=== PATIENT | female | born 1965 | race Asian ===

== ENCOUNTER 2019-06-30 17:54 | Outpatient (CLI) | payer SELFPAY | END 2019-06-30 17:55 | disposition home or self-care (01) | LOC: COV 17:54 | PROVIDERS: ATTEND Family Medicine | DX: R50.9 Fever, unspecified (principal); R05 Cough; M79.10 Myalgia, unspecified site; R53.83 Other fatigue; J02.9 Acute pharyngitis, unspecified; R43.8 Other disturbances of smell and taste; Z20.828 Contact with and (suspected) exposure to other viral communicable diseases | CPT/HCPCS: 81599 ==

== ENCOUNTER 2020-05-18 23:35 | Emergency (ER) | payer OTHER ==
--- NOTE | 2020-05-19 00:03 | ED Physician Documentation ---
PD HPI SYNCOPE - Stated complaint Stated Complaint: LOSS OF CONSCIENCE, NAUSEA, VOMITTING, DIZZYNESS - Chief complaint Chief Complaint: Cardiac - History obtained from History obtained from: Patient - History of Present Illness Witnessed: Witnessed Timing - onset: Enter time (22:00), Today Duration: Seconds Preceding symptoms: Nausea / vomiting, Light headed Associated symptoms: Nausea / vomiting Contributing factors: None Injury occurred: None Pain level max: 0 Pain level now: 0 Similar symptoms before: Has not had sx before Recently seen: Not recently seen - Additional information Additional information: patient was at work tonight, and at approximately 10 PM, while seated in front of a computer, she suddenly felt unwell. Patient cannot specify what she means when she says she felt unwell, but she says she then developed nausea and dizziness. She subsequently threw up, and, before getting out of her chair, she had a brief loss of consciousness, she estimates a few seconds. she subsequently had rapid return to normal level of consciousness and interaction, but continue to feel lightheaded and nauseous. She denies history of similar symptoms. Review of Systems Constitutional: reports: Reviewed and negative Eyes: reports: Reviewed and negative Cardiac: reports: Reviewed and negative Respiratory: reports: Reviewed and negative GI: reports: Nausea, Vomiting. denies: Abdominal Pain, Constipation, Diarrhea : denies: Dysuria, Frequency, Incontinent Neurologic: reports: Syncope. denies: Focal weakness, Numbness, Altered mental status, Headache PD PAST MEDICAL HISTORY - Past Medical History Past Medical History: No - Past Surgical History Past Surgical History: Yes General: Cholecystectomy - Present Medications Home Medications: Ambulatory Orders Medication Instructions Recorded Confirmed Melatonin/Pyridoxine [Melatonin 5 1 tab PO QPM 05/19/20 05/19/20 mg Tablet] Multivitamin 1 tab PO DAILY 05/19/20 05/19/20 metFORMIN [Glucophage] 500 mg PO BIDWM #20 tablet 05/19/20 - Allergies Allergies/Adverse Reactions: Allergies Allergy/AdvReac Type Severity Reaction Status Date / Time narcotics Allergy Hives Uncoded 05/19/20 00:22 PD ED PE NORMAL - Vitals Vital signs reviewed: Yes - General General: Alert and oriented X 3, No acute distress, Well developed/nourished - HEENT HEENT: PERRL, EOMI, Moist mucous membranes - Neck Neck: Supple, no meningeal sign - Cardiac Cardiac: RRR, No murmur - Respiratory Respiratory: No respiratory distress, Clear bilaterally - Abdomen Abdomen: Soft, Non tender - Derm Derm: Normal color, Warm and dry - Extremities Extremities: No edema - Neuro Neuro: Alert and oriented X 3, citrix administrator 2-12 intact, No motor deficit, No sensory deficit, Normal speech Eye Opening: Spontaneous Motor: Obeys Commands Verbal: Oriented GCS Score: 15 Results - Vitals Vitals: Oxygen O2 Source Room air - EKG (time done) No standard instances Rate: Rate (enter#) (95) Rhythm: NSR [place]: Normal Intervals: Normal [place] QRS: Normal Ischemia: Normal ST segments - Labs Labs: Laboratory Tests 05/18/20 05/19/20 05/19/20 23:52 00:13 00:13 WBC 6.1 RBC 4.96 Hgb 15.0 Hct 44.5 MCV 89.7 MCH 30.2 MCHC 33.7 RDW 11.9 L Plt Count 217 MPV 10.1 Neut # (Auto) 4.2 Lymph # (Auto) 1.5 [place] # (Auto) 0.4 Eos # (Auto) 0.1 Baso # (Auto) 0.0 Absolute Nucleated RBC 0.00 Nucleated RBC % 0.0 VBG pH VBG pCO2 VBG pO2 VBG HCO3 VBG Total CO2 VBG O2 Saturation VBG Base Excess Sodium 135 Potassium 3.0 L Chloride 99 L Carbon Dioxide 22 Anion Gap 14.0 H BUN 12 Creatinine 0.7 Estimated GFR (MDRD) 87 L Glucose 366 H POC Whole Bld Glucose 359 H Estimat Average Glucose Hemoglobin A1c % Calcium 9.1 Total Bilirubin 0.8 AST 16 ALT 29 Alkaline Phosphatase 57 Troponin I High Sens Total Protein 7.9 Albumin 4.5 Globulin 3.4 Albumin/Globulin Ratio 1.3 Lipase 53 H TSH Urine Color Urine Clarity Urine pH Ur Specific [place] Urine Protein Urine Glucose (UA) Urine Ketones Urine Occult Blood Urine Nitrite Urine Bilirubin Urine Urobilinogen Ur Leukocyte Esterase Ur Microscopic Review Urine Culture Comments Serum Ketones NEGATIVE 05/19/20 05/19/20 05/19/20 00:13 00:13 00:13 WBC RBC Hgb Hct MCV MCH MCHC RDW Plt Count MPV Neut # (Auto) Lymph # (Auto) [place] # (Auto) Eos # (Auto) Baso # (Auto) Absolute Nucleated RBC Nucleated RBC % VBG pH 7.383 VBG pCO2 38.7 L VBG pO2 35.3 VBG HCO3 22.5 L VBG Total CO2 23.7 L VBG O2 Saturation 73.1 VBG Base Excess -2.2 L Sodium Potassium Chloride Carbon Dioxide Anion Gap BUN Creatinine Estimated GFR (MDRD) Glucose POC Whole Bld Glucose Estimat Average Glucose Hemoglobin A1c % Calcium Total Bilirubin AST ALT Alkaline Phosphatase Troponin I High Sens < 2.3 L Total Protein Albumin Globulin Albumin/Globulin Ratio Lipase TSH 1.15 Urine Color Urine Clarity Urine pH Ur Specific [place] Urine Protein Urine Glucose (UA) Urine Ketones Urine Occult Blood Urine Nitrite Urine Bilirubin Urine Urobilinogen Ur Leukocyte Esterase Ur Microscopic Review Urine Culture Comments Serum Ketones 05/19/20 05/19/20 05/19/20 00:13 00:30 02:12 WBC RBC Hgb Hct MCV MCH MCHC RDW Plt Count MPV Neut # (Auto) Lymph # (Auto) [place] # (Auto) Eos # (Auto) Baso # (Auto) Absolute Nucleated RBC Nucleated RBC % VBG pH VBG pCO2 VBG pO2 VBG HCO3 VBG Total CO2 VBG O2 Saturation VBG Base Excess Sodium Potassium Chloride Carbon Dioxide Anion Gap BUN Creatinine Estimated GFR (MDRD) Glucose POC Whole Bld Glucose 205 H Estimat Average Glucose 303 H Hemoglobin A1c % 12.2 H Calcium Total Bilirubin AST ALT Alkaline Phosphatase Troponin I High Sens Total Protein Albumin Globulin Albumin/Globulin Ratio Lipase TSH Urine Color YELLOW Urine Clarity CLEAR Urine pH 5.5 Ur Specific [place] 1.020 Urine Protein NEGATIVE Urine Glucose (UA) >=1000 H Urine Ketones NEGATIVE Urine Occult Blood NEGATIVE Urine Nitrite NEGATIVE Urine Bilirubin NEGATIVE Urine Urobilinogen 0.2 (NORMAL) Ur Leukocyte Esterase NEGATIVE Ur Microscopic Review NOT INDICATED Urine Culture Comments NOT INDICATED Serum Ketones - Rads (name of study) chest xray Radiology: Prelim report reviewed, See rad report PD MEDICAL DECISION MAKING - ED course Complexity details: reviewed results, re-evaluated patient, considered differential, d/w patient ED course: brief syncopal episode while at work with rapid return to baseline and no focal neurological c/o nor findings. NSR on monitor and EKG with normal troponin. of likely incident finding are hypokalemia and hyperglycemia. she says she has had hypokalemia before, and at 3.0, it is unlikely to have caused or contributed to the syncopal episode. her hyperglycemia is new for her, and this is more likely to have been a contributing factor, such as causing dehydration secondary to polyuria. she has no ketones in urine nor serum ketones and she feels well a fter IV fluids and 5units IV insulin. recheck of blood sugar is 205. she is to follow up with PMD, and is given an rx for metformin for short course that should be enough supply until she can be seen in outpatient setting. Departure - Departure Disposition: 01 Home, Self Care Clinical Impression: Hyperglycemia, Hypokalemia Syncope Qualifiers: Syncope type: unspecified Qualified Code(s): R55 - Syncope and collapse Condition: Good Instructions: ED Potassium Deficiency, ED Fainting Unkn Cause, ED Hyperglycemia New Susp Diabetes Follow-Up: Patricia Rizvi ARNP [Credentialed Staff Provider] - (within 3-5 days ) Prescriptions: metFORMIN [Glucophage] 500 mg PO BIDWM #20 tablet Forms: Activity restrictions Discharge Date/Time: 05/19/20 03:12
[2020-05-19 00:19] LABS: BASOPHILS % (AUTO) 0.7 %; EOSINOPHILS # (AUTO) 0.1 10^3/uL (0.0-0.7); EOSINOPHILS % (AUTO) 1.3 %; HCT - HEMATOCRIT 44.5 % (37.0-47.0); LYMPHOCYTES # (AUTO) 1.5 10^3/uL (1.5-3.5); LYMPHOCYTES % (AUTO) 23.7 %; MEAN CORPUSCULAR HEMOGLOBIN 30.2 pg (27.0-31.0); MEAN CORPUSCULAR HGB CONC 33.7 g/dL (32.0-36.0); MEAN CORPUSCULAR VOLUME 89.7 fL (81.0-99.0); MEAN PLATELET VOLUME 10.1 fL (7.9-10.8); MONOCYTES # (AUTO) 0.4 10^3/uL (0.0-1.0); MONOCYTES % (AUTO) 6.1 %; NEUTROPHILS # (AUTO) 4.2 10^3/uL (1.5-6.6); NEUTROPHILS % (AUTO) 67.9 %; PLT - PLATELET COUNT 217 10^3/uL (130-450); RED BLOOD COUNT 4.96 10^6/uL (4.20-5.40); RED CELL DISTRIBUTION WIDTH 11.9 % (12.0-15.0); WHITE BLOOD COUNT 6.1 x10^3/uL (4.8-10.8)
[2020-05-19 00:20] LABS: VBG BASE EXCESS -2.2 mmol/L (-2 - +2); VBG HCO3 22.5 mmol/L (23-28); VBG OXYGEN SATURATION 73.1 % (60-80); VBG PCO2 38.7 mmHg (41-51); VBG PH 7.383 (7.31-7.41); VBG PO2 35.3 mmHg (25-47); VBG TOTAL CO2 23.7 mmol/L (24-29)
[2020-05-19 00:31] LABS: ALBUMIN 4.5 g/dL (3.2-5.5); ALBUMIN/GLOBULIN RATIO 1.3 (1.0-2.2); ALKALINE PHOSPHATASE 57 IU/L (42-121); ALT ALANINE AMINOTRANSFERASE 29 IU/L (10-60); AST ASPARTATE AMINOTRANSFERASE 16 IU/L (10-42); BILIRUBIN,TOTAL 0.8 mg/dL (0.2-1.0); BUN - BLOOD UREA NITROGEN 12 mg/dL (6-20); CALCIUM 9.1 mg/dL (8.5-10.3); CARBON DIOXIDE - CO2 22 mmol/L (21-32); CHLORIDE 99 mmol/L (101-111); CREATININE 0.7 mg/dL (0.4-1.0); GFR - MDRD 87 (>89); GLUCOSE 366 mg/dL (70-100); LIPASE 53 U/L (22-51); SODIUM 135 mmol/L (135-145); TOTAL PROTEIN 7.9 g/dL (6.7-8.2)
[2020-05-19 00:32] LABS: KETONES, SERUM (ACETEST) NEGATIVE (NEGATIVE)
[2020-05-19 00:39] LABS: BILIRUBIN,URINE NEGATIVE (NEGATIVE); CLARITY,URINE CLEAR (CLEAR); GLUCOSE, URINE (UA) >=1000 mg/dL (NEGATIVE); KETONES,URINE (UA) NEGATIVE (NEGATIVE); LEUKOCYTE ESTERASE, URINE NEGATIVE (NEGATIVE); NITRITE,URINE NEGATIVE (NEGATIVE); OCCULT BLOOD,URINE NEGATIVE (NEGATIVE); PH,URINE 5.5 PH (5.0-7.5); PROTEIN,URINE NEGATIVE (NEGATIVE); UROBILINOGEN,URINE 0.2 (NORMAL) E.U./dL (NORMAL)
[2020-05-19] MEDS ORDERED: INSULIN REGULAR HUMAN 100 UNIT/1 ML 10 ML MDV IVP STA (01:26)
[2020-05-19] MEDS ORDERED: SODIUM CHLORIDE 0.9% 1,000 ML IV STA (01:26)
[2020-05-19] MEDS ORDERED: POTASSIUM CHLORIDE 20 MEQ TABLET PO STA (01:31)
[2020-05-19 03:12] VITALS: BP 117/70
--- NOTE | 2020-05-19 08:29 | XRAY Report ---
PROCEDURE: Chest 2 View X-Ray INDICATIONS: syncope, chest pain TECHNIQUE: 2 view(s) of the chest. COMPARISON: None. FINDINGS: Surgical changes and devices: None. Lungs and pleura: No pleural effusions or pneumothorax. Lungs are clear. Mediastinum: Mediastinal contours are normal. Heart size is normal. Bones and chest wall: No suspicious bony abnormalities. Soft tissues appear unremarkable. IMPRESSION: No acute pulmonary process. The above findings are concordant with preliminary report. Reviewed by: Roro Weems MD on 05/19/2020 8:28 AM PDT Approved by: Roro Weems MD on 05/19/2020 8:28 AM PDT Station ID: [id number]
[2020-05-19 12:03] LABS: ESTIMATED AVERAGE GLUCOSE 303 mg/dL (70-100); HEMOGLOBIN A1c% 12.2 % (4.27-6.07)
== END 2020-05-19 03:12 | disposition home or self-care (01) ==
LOC: ED 23:35
DX: R73.9 Hyperglycemia, unspecified (principal); E87.6 Hypokalemia
CPT/HCPCS: 36415; 71046; 80053; 81003; 82009; 82803; 83036; 83690; 84443; 84484; 85025; 93005; 96360; 99284; A9270; J1815; 81001; 87086

== ENCOUNTER 2021-05-11 17:43 | Emergency (ER) | payer OTHER ==
[2021-05-11 17:52] VITALS: BP 154/81
--- NOTE | 2021-05-11 18:11 | ED Physician Documentation ---
History of Present Illness - Stated complaint Stated Complaint: FALL,RIGHT RIB PX - Chief complaint Chief Complaint: Trauma Ch/Bk - Additonal information Additional information: 55-year-old female presents emergency department for evaluation of 3 days right anterior and lateral rib wall pain. Reports mechanical ground-level fall when she tripped over her suitcase landing directly on her right side on the hard ground. She does present with a hematoma on her left thigh and bruising on her right simon but no ambulatory difficulties. No loss of consciousness. She did strike her head but is not anticoagulated. Over the last 3 days she has had tenderness in the anterior chest and reports some difficulty with deep breaths. No hemoptysis no fever. No history of previous chest trauma or rib fractures. She has taken Motrin and Tylenol with minimal relief of symptoms. Review of Systems Constitutional: denies: Fever, Chills Eyes: reports: Reviewed and negative Ears: reports: Reviewed and negative Throat: reports: Reviewed and negative Cardiac: reports: Other (Chest wall pain) Respiratory: reports: Reviewed and negative GI: reports: Reviewed and negative : reports: Reviewed and negative PD PAST MEDICAL HISTORY - Past Medical History Endocrine/Autoimmune: HyPOthyroidism - Past Surgical History Past Surgical History: Yes General: Cholecystectomy - Present Medications Home Medications: Ambulatory Orders Medication Instructions Recorded Confirmed Melatonin/Pyridoxine [Melatonin 5 1 tab PO QPM 05/19/20 05/19/20 mg Tablet] Multivitamin 1 tab PO DAILY 05/19/20 05/19/20 metFORMIN [Glucophage] 500 mg PO BIDWM #20 tablet 05/19/20 HYDROcod/ACETAM 5/325 [[place] 5/325] 1 tablet PO BID PRN #10 tablet 05/11/21 - Allergies Allergies/Adverse Reactions: Allergies Allergy/AdvReac Type Severity Reaction Status Date / Time narcotics Allergy Hives Uncoded 05/11/21 17:52 - Social History Does the pt smoke?: No Smoking Status: Never smoker Does the pt drink ETOH?: No Does the pt have substance abuse?: No - Immunizations Immunizations are current?: No Immunizations: TDAP >10years/unknown - POLST Patient has POLST: No PD ED PE NORMAL - General General: Alert and oriented X 3, No acute distress, Well developed/nourished - HEENT HEENT: Atraumatic, Moist mucous membranes, Pharynx benign - Neck Neck: Supple, no meningeal sign, No adenopathy, C-Spine cleared by NEXUS criteria - Cardiac Cardiac: RRR, No murmur, No gallop - Respiratory Respiratory: No respiratory distress, Clear bilaterally, Other (Tenderness of the right anterior chest wall just under the breast. No obvious ecchymosis crepitus or deformity. Patient is able to take a full deep breath though somewhat painful.) - Abdomen Abdomen: Normal bowel sounds, Soft - Derm Derm: Normal color, Warm and dry, Other (Ecchymosis left mid anterior thigh. Superficial bruising on the right lateral simon. Normal gait.) Results - Vitals Vitals: Vital Signs - 24 hr 05/11/21 17:48 Temperature 36.4 C L Heart Rate 86 Respiratory 16 Rate Blood Pressure 154/81 H O2 Saturation 100 Oxygen O2 Source Room air PD MEDICAL DECISION MAKING - ED course Complexity details: reviewed results, re-evaluated patient, d/w patient ED course: 55-year-old female presents emergency department for 3 days of right anterior chest wall pain. This occurred after a ground-level fall at home in which she tripped over her suitcase. She presents with tenderness over the right anterior chest wall but no obvious ecchymosis. She is able to take a full deep breath. No hypoxia noted. Screening chest x-ray and rib series is without any acute findings.I suspect that she has a Chest contusion. Patient is recommended continuation of Motrin and Tylenol. A limited prescription for hydrocodone is being sent to the pharmacy. I am prescribing a short course of short-acting opioid pain medication for this patient. I have reviewed the patients HAT BRAIDER and no concerning findings were noted. I have discussed that the opioids are for short term therapy only, and will not be refilled from the ED. Departure - Departure Disposition: 01 Home, Self Care Clinical Impression: Fall from ground level Contusion of right chest wall Qualifiers: Encounter type: initial encounter Qualified Code(s): S20.211A - Contusion of right front wall of thorax, initial encounter Condition: Stable Record reviewed to determine appropriate education?: Yes Instructions: ED Contusion Vs Minor Fx Rib Prescriptions: HYDROcod/ACETAM 5/325 [[place] 5/325] 1 tablet PO BID PRN #10 tablet PRN Reason: Pain Comments: Erre you were seen today for pain on the front of your right chest wall after a fall 3 days ago. The x-ray does not show any obvious broken bones however you m ost likely have what is called contusion or bruising of the rib wall. I expect that this is going to get better over the next 7 to 10 days. It is okay to continue to take the ibuprofen and Tylenol. For severe pain I have prescribed a limited amount of hydrocodone. If you find that your pain is not improving, you develop fevers or have a bloody cough then please return immediately to the ER for second evaluation. Your hydrocodone has been sent to the [facility] in [place] I am prescribing a short course of narcotic pain medication for you. These are potentially dangerous and addictive medications that should be used carefully. These medications may constipate you. Take an [id number] stool softener (docusate) twice daily with plenty of water while taking these medications. If you go 24 hours without a bowel movement, take [id number] miralax, per package instructions. Do not drink or drive while taking these medications. If you received narcotic or sedating medications while in the emergency department, do not drive for 24 hours. Store this medication in a safe, secure place and out of reach of children. It is a violation of federal law to give or sell this medication to another person or to use in a manner other than prescribed. The ED will not refill narcotic prescriptions, including prescriptions lost or stolen. To dispose of unwanted medications: 1. [facility] at [address] in [place] has a medication drop box. They accept prescription medications (in pill form) Friday through Friday 9:00 a.m. to 5:00 p.m. 2. The [facility] [employer] accepts prescription medications (in pill form only) for disposal year round. Call for more information. 3. Contact the [facility] for the next [facility] sponsored prescription drug collection event. , [phone], or [phone]; Note that many narcotic pain relievers also contain Tylenol/acetaminophen. Please ensure that your total dose of acetaminophen from all sources does not exceed 3 g (3000 mg) per day.
--- NOTE | 2021-05-11 19:21 | XRAY Report ---
PROCEDURE: Ribs w/PA Chest RT INDICATIONS: glf; Anterior rib wall pain under the breast TECHNIQUE: 2 views of the right ribs were acquired, along with a single view chest. COMPARISON: 05/19/2020 FINDINGS: Surgical changes and devices: None. Bones and chest wall: No acute fractures or dislocations. No suspicious bony lesions. Overlying so ft tissues appear unremarkable. Lungs and pleura: No pleural effusions or pneumothorax. Lungs appear clear. Mediastinum: Mediastinal contours appear normal. Heart size is normal. IMPRESSION: Chest without acute cardiopulmonary abnormalities. No acute rib fractures identified over the area of concern as indicated by skin BB marker. Reviewed by: Tom Osborne MD on 05/11/2021 7:20 PM PST Approved by: Tom Osborne MD on 05/11/2021 7:20 PM PST Station ID: [id number]
== END 2021-05-11 20:04 | disposition home or self-care (01) ==
LOC: ED 17:43
DX: S09.90XA Unspecified injury of head, initial encounter (principal); S20.211A Contusion of right front wall of thorax, initial encounter; W01.0XXA Fall on same level from slipping, tripping and stumbling without subsequent striking against object, initial encounter
CPT/HCPCS: 99282; 99283